=== PATIENT | male | born 1960 | race Caucasian/White ===

== ENCOUNTER 2022-01-10 06:00 | Emergency (ER) | payer OTHER ==
[~2022-01-10] VITALS: Ht 167.6 cm; Wt 96.6 kg
[2022-01-10 06:33] VITALS: BP 127/99
--- NOTE | 2022-01-10 06:36 | NUR ---
pt to lobby
[2022-01-10] MEDS ORDERED: ONDANSETRON 4 MG ODT PO ONE (06:55)
[2022-01-10] MEDS ORDERED: BENZ200C4 PO (07:21)
[2022-01-10] MEDS ORDERED: ONDA-188 PO (07:21)
--- NOTE | 2022-01-10 07:52 | NUR ---
Patient ambulated to bed 03.
--- NOTE | 2022-01-10 07:59 | NUR ---
61 y/o M BIB self from home c/o cough, headache, nausea x 2 days. Pt A&Ox4, ambulatory, reports sick at home with similar symptoms. Negative COVID test yesterday. States OTC cough medication without relief. Denies fever, chills, chest pain, vomiting, diarrhea. PMH/Sx/Meds: Denies NKDA
--- NOTE | 2022-01-10 08:00 | NUR ---
Swabs walked to lab handed to CPT.
--- NOTE | 2022-01-10 08:00 | NUR ---
Patient discharged with v/s stable. Written and verbal after care instructions given and explained for Cough, Adult. Patient alert, oriented and verbalized understanding of instructions. Ambulatory with steady gait. All questions addressed prior to discharge. ID band removed. Patient advised to follow up with PMD. Rx of Zofran ODT, Benzonatate given. Patient educated on indication of medication including possible reaction and side effects. Opportunity to ask questions provided and answered.
[2022-01-10] MEDS ORDERED: TAM75 PO (09:15)
== END 2022-01-10 08:00 | disposition home or self-care (01) ==
LOC: MED 06:00
DX: J10.1 Influenza due to other identified influenza virus with other respiratory manifestations (principal); Z20.822 Contact with and (suspected) exposure to COVID-19; R11.0 Nausea; R05.9 Cough, unspecified; R51.9 Headache, unspecified; E11.9 Type 2 diabetes mellitus without complications; Z79.899 Other long term (current) drug therapy
CPT/HCPCS: 71045; 87426; 87804; 99284; Q0162

== ENCOUNTER 2022-02-16 08:13 | Emergency (ER) | payer OTHER ==
[~2022-02-16] VITALS: Ht 167.6 cm; Wt 90.7 kg
[~2022-02-16 08:13] MED LIST: BENZ200C4 PO; ONDA-188 PO; TAM75 PO
--- NOTE | 2022-02-16 08:25 | NUR ---
PT AMBULATED TO LOBBY
[2022-02-16 08:26] VITALS: BP 149/85
--- NOTE | 2022-02-16 08:37 | NUR ---
62/M WALKED IN C/O COUGH, CONGESTION AND NAUSEA ONSET 4 DAYS. DENIES FEVER, DENIES VOMITING OR DIARRHEA. STATES TESTING NEGATIVE WITH AT-HOME COVID TEST. AFEBRILE AT TRIAGE. PT REPORTS TAKING DAYQUIL THIS MORNING. AAO4, AMBULATORY, VITALS STABLE, ON ROOM AIR, NO ACUTE DISTRESS NOTED. PMH: DM
--- NOTE | 2022-02-16 10:46 | NUR ---
PT AMBULATED TO ER BED 2
[2022-02-16] MEDS ORDERED: AZIT500T PO (11:04)
[2022-02-16] MEDS ORDERED: IBUP-2213 PO (11:05)
[2022-02-16 11:11] VITALS: BP 146/88
--- NOTE | 2022-02-16 11:11 | NUR ---
Patient discharged with v/s stable. Written and verbal after care instructions given and explained. Patient alert, oriented and verbalized understanding of instructions. Ambulatory with steady gait. All questions addressed prior to discharge. ID band removed. Patient advised to follow up with PMD. Rx of Ibuprofen and Zithromax given. Patient educated on indication of medication including possible reaction and side effects. Opportunity to ask questions provided and answered.
== END 2022-02-16 11:11 | disposition home or self-care (01) ==
LOC: MED 08:13
DX: R05.9 Cough, unspecified (principal); R50.9 Fever, unspecified
CPT/HCPCS: 71045; 99283

== ENCOUNTER 2022-05-27 12:38 | Emergency (ER) | payer OTHER ==
[~2022-05-27] VITALS: Ht 167.6 cm; Wt 92.5 kg
[~2022-05-27 12:38] MED LIST changes: +AZIT500T PO; +IBUP-2213 PO
[2022-05-27 12:44] VITALS: BP 178/96
--- NOTE | 2022-05-27 12:45 | NUR ---
pt amb to bed 11
--- NOTE | 2022-05-27 12:56 | NUR ---
PT WALKED IN C/O LEFT SIDED CP ONSET TODAY, 4 HOURS AGO. DENIES RADIATION. REPORTS CONSTANT DULL PAIN. DENIES ANY CARDIAC HX. PMH: DM
[2022-05-27 13:40] LABS: BASOPHILS # (AUTO) 0.1 K/uL (0.00-0.22); BASOPHILS % (AUTO) 0.9 % (0.0-2.0); EOSINOPHILS # (AUTO) 0.1 K/uL (0-0.4); HEMATOCRIT 44.4 % (36-52); HEMOGLOBIN 15.5 g/dL (12.0-18.0); LYMPHOCYTES # (AUTO) 2.1 K/uL (2.0-11.5); MEAN CORPUSCULAR HEMOGLOBIN 30 pg (27-31); MEAN CORPUSCULAR HGB CONC 35 g/dL (33-37); MEAN CORPUSCULAR VOLUME 85.4 fL (80-94); MONOCYTES # (AUTO) 0.4 K/uL (0.8-1.0); MONOCYTES % (AUTO) 7.2 % (1.7-9.3); NEUTROPHILS # (AUTO) 3.5 K/uL (1.8-7.7); NEUTROPHILS % (AUTO) 56.9 % (42.2-75.2); PLATELET COUNT (AUTO) 204 K/uL (140-450); RED BLOOD CELL COUNT(AUTO) 5.19 MIL/uL (4.20-6.10); RED CELL DISTRIBUTION WIDTH 12.9 % (11.6-13.7); WHITE BLOOD COUNT (AUTO) 6.1 K/uL (4.8-10.8)
[2022-05-27 13:58] LABS: ALBUMIN 4.1 g/dL (3.4-5.0); ASPARTATE AMINOTRANSFERASE 25 U/L (15-37); BILIRUBIN,DIRECT 0.1 mg/dL (0.0-0.3); TOTAL BILIRUBIN 0.4 mg/dL (0.0-1.0)
[2022-05-27 14:15] LABS: APPEARANCE,URINE CLEAR (CLEAR); BILIRUBIN,URINE NEGATIVE (NEGATIVE); BLOOD, URINE NEGATIVE (NEGATIVE); COLOR,URINE YELLOW (YELLOW); LEUKOCYTE ESTERASE ,URINE NEGATIVE (NEGATIVE); NITRITE, URINE NEGATIVE (NEGATIVE); PH,URINE 5.5 (5.0-9.0); UGLUCOSE NEGATIVE (NEGATIVE)
[2022-05-27 15:28] LABS: CARBON DIOXIDE 21.2 mmol/L (21-32); POTASSIUM 4.2 mmol/L (3.5-5.1)
[2022-05-27] MEDS ORDERED: ONDANSETRON 4 MG ODT PO ONE (15:30)
[2022-05-27] MEDS ORDERED: METF-346 PO (15:42)
[2022-05-27 15:54] VITALS: BP 145/83
--- NOTE | 2022-05-27 15:56 | NUR ---
Patient discharged with v/s stable. Written and verbal after care instructions given and explained. Patient verbalized understanding. Ambulatory with steady gait. All questions addressed prior to discharge. Advised to follow up with PMD.
== END 2022-05-27 15:54 | disposition home or self-care (01) ==
LOC: MED 12:38
DX: R10.9 Unspecified abdominal pain (principal); R07.9 Chest pain, unspecified
CPT/HCPCS: 36415; 71045; 80048; 80076; 81003; 84484; 85025; 93005; 99285; Q0162

== ENCOUNTER 2022-12-04 16:57 | Emergency (ER) | payer OTHER ==
[~2022-12-04] VITALS: Ht 167.6 cm; Wt 90.7 kg
[~2022-12-04 16:57] MED LIST changes: +METF-346 PO
[2022-12-04 18:16] VITALS: BP 155/93; PULSE 93; RESP 18; TEMP 98.2; O2SAT 99
[2022-12-04] MEDS ORDERED: NAPR-1704 PO (20:58)
== END 2022-12-04 22:08 | disposition home or self-care (01) ==
LOC: MED 16:57
DX: S93.402A Sprain of unspecified ligament of left ankle, initial encounter (principal); S00.03XA Contusion of scalp, initial encounter; E11.9 Type 2 diabetes mellitus without complications; Z79.899 Other long term (current) drug therapy; Z79.1 Long term (current) use of non-steroidal anti-inflammatories (NSAID); W01.198A Fall on same level from slipping, tripping and stumbling with subsequent striking against other object, initial encounter; Y92.89 Other specified places as the place of occurrence of the external cause; Y93.89 Activity, other specified; Y99.8 Other external cause status
CPT/HCPCS: 70450; 73610; 90471; 90715; 99285